=== PATIENT | female | born 1985 | race Caucasian/White ===

== ENCOUNTER 2016-09-26 01:37 | Emergency (ER) | payer SELFPAY ==
[~2016-09-26] VITALS: Ht 154.9 cm; Wt 68.2 kg
[~2016-09-26 01:37] MED LIST: IBUP-1672 PO
[2016-09-26] MEDS ORDERED: ALBUTEROL SULFATE 5 MG/ML 20 ML NEB SOLN [BULK] NEB ONE ×2 (02:45→07:00)
[2016-09-26] MEDS ORDERED: SODIUM CHLORIDE 0.9% 1,000 ML IV ONE (02:45)
[2016-09-26] MEDS ORDERED: 0.9% SODIUM CHLORIDE 5 ML NEB SOLUTION NEB ONE ×2 (02:46→07:06)
[2016-09-26] MEDS ORDERED: DEXAMETHASONE SOD PHOS 4 MG/ML 5 ML VIAL IVP ONE (03:00)
[2016-09-26 03:04] LABS: BASOPHILS # (AUTO) 0.02 K/uL (0.00-0.20); BASOPHILS % (AUTO) 0.2 % (0.0-2.0); EOSINOPHILS # (AUTO) 0.27 K/uL (0.00-0.70); EOSINOPHILS % (AUTO) 1.72 % (1.0-6.0); HEMATOCRIT 37.7 % (36-46); HEMOGLOBIN 12.6 g/dL (12.0-16.0); LYMPHOCYTES # (AUTO) 2.5 K/uL (1.0-4.8); LYMPHOCYTES % (AUTO) 16.1 % (22.0-44.0); MEAN CORPUSCULAR HEMOGLOBIN 30.3 pg (26.0-34.0); MEAN CORPUSCULAR HGB CONC 33.5 G/dL (31.0-37.0); MEAN CORPUSCULAR VOLUME 90 fL (80-100); MONOCYTES # (AUTO) 0.7 K/uL (0.1-1.0); MONOCYTES % (AUTO) 4.5 % (2.0-9.0); NEUTROPHILS # (AUTO) 12.2 K/uL (1.8-7.7); NEUTROPHILS % (AUTO) 77.5 % (40.0-70.0); PLATELET COUNT (AUTO) 232 K/uL (150-450); RED BLOOD CELL COUNT(AUTO) 4.16 MIL/uL (4.00-5.20); RED CELL DISTRIBUTION WIDTH 14.6 % (11.5-14.5); WHITE BLOOD COUNT (AUTO) 15.7 K/uL (4.5-11.0)
[2016-09-26 03:08] LABS: ANION GAP 8 mmol/L (8-16); CARBON DIOXIDE 24 mmol/L (22-29); CHLORIDE 103 mmol/L (98-107); CREATININE 0.54 mg/dL (0.60-1.30); GLOMERULAR FILTR. RATE CALC > 60 mL/min (>60); POTASSIUM 3.7 mmol/L (3.5-5.1); SODIUM SERUM 135 mmol/L (136-145); UREA NITROGEN, BLOOD 6 mg/dL (7-18)
[2016-09-26 03:14] LABS: ALANINE AMINOTRANSFERASE 13 U/L (12-78); ALBUMIN 2.9 g/dL (3.4-5.0); ASPARTATE AMINOTRANSFERASE 11 U/L (15-37); BILIRUBIN,TOTAL 0.4 mg/dL (0.1-1.0); TOTAL PROTEIN, SERUM 6.7 g/dL (6.4-8.2)
[2016-09-26] MEDS ORDERED: ACETAMINOPHEN/CODEINE 300-30 MG TABLET PO ONE (03:30)
[2016-09-26 07:45] VITALS: BP 98/60
== END 2016-09-26 07:47 | disposition home or self-care (01) ==
LOC: EMS 01:39
DX: O26.892 Other specified pregnancy related conditions, second trimester (principal); J45.909 Unspecified asthma, uncomplicated; F41.9 Anxiety disorder, unspecified; Z3A.18 18 weeks gestation of pregnancy
CPT/HCPCS: 36415; 80053; 84484; 85025; 85379; 93005; 94640; 96360; 96374; 99285; J1100; J7611

== ENCOUNTER 2018-10-26 23:50 | Emergency (ER) | payer SELFPAY ==
[~2018-10-26] VITALS: Ht 157.5 cm; Wt 75.0 kg
[2018-10-27] MEDS ORDERED: KETOROLAC TROMETHAMINE 60 MG/2 ML VIAL IM ONE (00:30)
[2018-10-27 01:00] VITALS: BP 120/68
== END 2018-10-27 01:02 | disposition home or self-care (01) ==
LOC: EMS 23:50
DX: S00.81XA Abrasion of other part of head, initial encounter (principal); J45.909 Unspecified asthma, uncomplicated; F41.9 Anxiety disorder, unspecified; Y04.2XXA Assault by strike against or bumped into by another person, initial encounter; Y93.89 Activity, other specified; Y92.89 Other specified places as the place of occurrence of the external cause; Y99.8 Other external cause status
CPT/HCPCS: 96372; 99283; J1885

== ENCOUNTER 2022-05-28 11:45 | Inpatient (IN) | payer MEDICAID ==
[~2022-05-28] VITALS: Ht 154.9 cm; Wt 64.8 kg
[2022-05-28 12:27] LABS: BASOPHILS % (AUTO) 0.6 % (0.0-2.0); EOSINOPHILS % (AUTO) 0.8 % (1.0-6.0); HEMATOCRIT 43.7 % (36-46); HEMOGLOBIN 14.6 g/dL (12.0-16.0); LYMPHOCYTES # (AUTO) 2.8 K/uL (1.0-4.8); LYMPHOCYTES % (AUTO) 27.4 % (22.0-44.0); MEAN CORPUSCULAR HEMOGLOBIN 31.5 pg (26.0-34.0); MEAN CORPUSCULAR HGB CONC 33.4 G/dL (31.0-37.0); MEAN CORPUSCULAR VOLUME 94 fL (80-100); MONOCYTES # (AUTO) 0.7 K/uL (0.1-1.0); MONOCYTES % (AUTO) 7.2 % (2.0-9.0); NEUTROPHILS # (AUTO) 6.5 K/uL (1.8-7.7); PLATELET COUNT (AUTO) 371 K/uL (150-450); RED BLOOD CELL COUNT(AUTO) 4.62 MIL/uL (4.00-5.20); RED CELL DISTRIBUTION WIDTH 13.9 % (11.5-14.5)
[2022-05-28 12:37] LABS: ANION GAP 10 mmol/L (8-16); CALCIUM, TOTAL 9.1 mg/dL (8.8-10.5); CARBON DIOXIDE 26 mmol/L (22-29); CHLORIDE 99 mmol/L (98-107); CREATININE 0.71 mg/dL (0.60-1.30); GLOMERULAR FILTR. RATE CALC > 60 mL/min (>60); GLUCOSE,RANDOM 75 mg/dL (70-110); POTASSIUM 3.5 mmol/L (3.5-5.1); SODIUM SERUM 135 mmol/L (136-145); UREA NITROGEN, BLOOD 10 mg/dL (7-18)
[2022-05-28] MEDS ORDERED: NALT50TA PO (12:37)
[2022-05-28] MEDS ORDERED: ALBU6.7H14 IH (12:37)
[2022-05-28] MEDS ORDERED: ESCI10 PO (12:37)
[2022-05-28 12:43] LABS: ALANINE AMINOTRANSFERASE 28 U/L (12-78); ALBUMIN 4.6 g/dL (3.4-5.0); ALKALINE PHOSPHATASE 88 U/L (46-116); ASPARTATE AMINOTRANSFERASE 31 U/L (15-37); BILIRUBIN,TOTAL 0.8 mg/dL (0.1-1.0)
[2022-05-28] MEDS ORDERED: OLANZapine 5 MG RAPDIS TABLET PO PRN (13:00)
[2022-05-28] MEDS ORDERED: ZOLPIDEM TARTRATE 10 MG TABLET PO PRN (13:00)
[2022-05-28] MEDS ORDERED: LORazepam 2 MG TABLET PO PRN (13:00)
[2022-05-28 13:24] LABS: COVID AG,FIA SOURCE NASOPHARYNGEAL
[2022-05-28] MEDS ORDERED: HydrOXYzine PAMOATE 50 MG CAPSULE PO PRN (14:45)
[2022-05-28] MEDS ORDERED: LOPERAMIDE HCL 2 MG CAPSULE PO PRN (14:45)
[2022-05-28] MEDS ORDERED: TUBERCULIN, PURIFIED PROTEIN DERIVATIVE 5 TU/0.1 ML SYRINGE ID ONE (14:45)
[2022-05-28] MEDS ORDERED: MAGNESIUM HYDROXIDE SUSPENSION 30 ML UDCUP PO PRN (14:45)
[2022-05-28] MEDS ORDERED: GuaiFENesin/D-METHORPHAN [SUGAR-FREE] 200-20MG/10 ML SYRUP UDCUP PO PRN (14:45)
[2022-05-28] MEDS ORDERED: MAG HYDROX/AL HYDROX/SIMETH ES 30 ML SUSPENSION UDCUP PO PRN (14:45)
[2022-05-28] MEDS ORDERED: PROMETHAZINE HCL 25 MG TABLET PO PRN (14:45)
[2022-05-28] MEDS ORDERED: ACETAMINOPHEN 325 MG TABLET PO PRN (14:45)
[2022-05-28 16:00] LABS: APPEARANCE,URINE CLEAR (CLEAR); BILIRUBIN,URINE NEGATIVE (NEGATIVE); GLUCOSE, URINE (UA) NEGATIVE (NEGATIVE); LEUKOCYTE ESTERASE ,URINE NEGATIVE (NEGATIVE); NITRATE,URINE NEGATIVE (NEGATIVE); OCCULT BLOOD,URINE SMALL (NEGATIVE); PROTEIN,URINE NEGATIVE (NEGATIVE); SPECIFIC GRAVITIY, URINE 1.009 (1.003-1.030); UROBILINOGEN,URINE <=1.0 mg/dL (<=1.0)
[2022-05-28 16:07] LABS: AMPHET/METH SCREEN,URINE POSITIVE (NEGATIVE); BARBITURATE SCREEN, URINE NEGATIVE (NEGATIVE); BENZODIAZEPINES SCREEN,URINE NEGATIVE (NEGATIVE); CANNABINOID SCREEN,URINE NEGATIVE (NEGATIVE); COCAINE SCREEN,URINE NEGATIVE (NEGATIVE); METHADONE SCREEN, URINE NEGATIVE (NEGATIVE); OPIATE SCREEN,URINE NEGATIVE (NEGATIVE); PHENCYCLIDINE SCREEN,URINE NEGATIVE (NEGATIVE)
[2022-05-28 16:41] LABS: BACTERIA,URINE None Seen /HPF (None Seen); RBC,URINE 0-2 /HPF (0-2); WBC,URINE None Seen /HPF (0-5)
[2022-05-28 18:08] VITALS: BP 116/85
[2022-05-28] MEDS ORDERED: INFLUENZA VIRUS VACCINE QVS 2022-23 (6MO+)/PF 60 MCG/0.5 ML SYRINGE IM. ONE (18:45)
[2022-05-28] MEDS: ESCITALOPRAM OXALATE 10 MG TABLET PO SCH (21:05)
[2022-05-28] MEDS: MELATONIN 5 MG TABLET PO SCH (21:06)
[2022-05-28 21:08] VITALS: BP 104/68
[2022-05-28] MEDS: THIAMINE 100 MG TABLET PO SCH (23:24)
[2022-05-29 07:20] LABS: HEMOGLOBIN A1C 4.9 % (3.8-5.6)
[2022-05-29 07:34] LABS: CHOL/HDL RATIO 2.4 (3.9-5.7); FREE T4 (FREE THYROXINE) 1.18 ng/dL (0.76-1.46)
[2022-05-29 08:30] VITALS: BP 106/65
[2022-05-29] MEDS: OMEGA-3/DHA/EPA/FISH OIL 1,000 MG CAPSULE PO SCH (08:50)
[2022-05-29] MEDS: FOLIC ACID 1 MG TABLET PO SCH (08:51)
[2022-05-29] MEDS: NALTREXONE HCL 50 MG TABLET PO SCH (08:51)
[2022-05-29] MEDS: THIAMINE 100 MG TABLET PO SCH ×2 (08:51→16:30)
[2022-05-29] MEDS: MULTIVITAMINS WITH MINERALS, THERAPEUTIC TABLET PO SCH (08:51)
[2022-05-29] MEDS ORDERED: ESCI10 PO (20:27)
[2022-05-29] MEDS: ESCITALOPRAM OXALATE 10 MG TABLET PO SCH (20:27)
[2022-05-29] MEDS: MELATONIN 5 MG TABLET PO SCH (20:27)
[2022-05-29] MEDS ORDERED: TRAZ-257 PO (20:27)
[2022-05-29] MEDS ORDERED: OMEG-135 PO (20:27)
[2022-05-29] MEDS ORDERED: NALT50TA PO (20:27)
[2022-05-29] MEDS ORDERED: MELA5TAB40 PO (20:27)
[2022-05-29] MEDS ORDERED: TraZODone HCL 100 MG TABLET PO SCH (21:00)
[2022-05-29 21:07] VITALS: BP 107/72
[2022-05-30 03:07] LABS: HEPATITIS C AB (EIA) <0.1 s/co ratio (0.0-0.9)
[2022-05-30 08:29] VITALS: BP 102/60
[2022-05-30] MEDS: NALTREXONE HCL 50 MG TABLET PO SCH (09:53)
[2022-05-30] MEDS: OMEGA-3/DHA/EPA/FISH OIL 1,000 MG CAPSULE PO SCH (09:53)
[2022-05-30] MEDS: FOLIC ACID 1 MG TABLET PO SCH (09:53)
[2022-05-30] MEDS: THIAMINE 100 MG TABLET PO SCH (09:54)
[2022-05-30] MEDS: MULTIVITAMINS WITH MINERALS, THERAPEUTIC TABLET PO SCH (09:54)
== END 2022-05-30 15:00 | disposition home or self-care (01) | DRG 751 ==
LOC: EMS 12:01 → B2S 15:17
PROVIDERS: ADMIT Psychiatry & Neurology Psychiatry; ATTEND Psychiatry & Neurology Psychiatry
DX: F33.2 Major depressive disorder, recurrent severe without psychotic features (principal); R45.851 Suicidal ideations; F17.200 Nicotine dependence, unspecified, uncomplicated; J44.9 Chronic obstructive pulmonary disease, unspecified; F43.10 Post-traumatic stress disorder, unspecified; F10.129 Alcohol abuse with intoxication, unspecified; F41.0 Panic disorder [episodic paroxysmal anxiety]; F41.9 Anxiety disorder, unspecified; Z20.822 Contact with and (suspected) exposure to COVID-19; Z55.9 Problems related to education and literacy, unspecified; Z59.9 Problem related to housing and economic circumstances, unspecified; Z63.9 Problem related to primary support group, unspecified; Z65.3 Problems related to other legal circumstances; Z87.440 Personal history of urinary (tract) infections; Z91.51 Personal history of suicidal behavior; Z98.891 History of uterine scar from previous surgery
CPT/HCPCS: 80053; 80061; 80307; 81001; 83036; 84436; 84439; 84703; 85025; 86592; 86803; 87340; 90686; G0480; Q9967